=== PATIENT | female | born 1960 | race Caucasian/White ===

== ENCOUNTER 2020-08-01 19:26 | Emergency (ER) | payer BC ==
[~2020-08-01] VITALS: Ht 175.3 cm; Wt 68.2 kg
--- NOTE | 2020-08-01 20:00 | NUR ---
PT STATES SHE HAD 1200 MG IBUPROFEN APPROX 3 HRS AGO, AND 1 NORCO 10 APPROX 2 HRS AGO WITH NO RELIEF. PT IS CURRENTLY ON AUGMENTIN PRESCRIBED BY SALINE Risk I/O.
[2020-08-01] MEDS ORDERED: ketorolac trometh inj. 60 MG/2 ML VIAL IM ONE (20:10)
[2020-08-01 20:28] LABS: RED BLOOD COUNT 3.45 X10'6 (4.20-5.60)
[2020-08-01 20:29] LABS: HEMOGLOBIN 11.1 g/dl (12.0-16.0); MEAN CORPUSCULAR HEMOGLOBIN 32.1 PG (27.0-31.0); MEAN CORPUSCULAR HGB CONC 33.6 g/dL (33.0-36.5); MEAN CORPUSCULAR VOLUME 95.5 FL (78-98); MEAN PLATELET VOLUME 9.2 FL (7.4-10.4); PLATELET COUNT 192 X10'3 (140-440); RED CELL DISTRIBUTION WIDTH 13.7 % (11.5-14.5)
[2020-08-01 20:54] LABS: ANISOCYTOSIS FEW; PLATELET ESTIMATE NORMAL; TOTAL CELLS COUNTED 100
[2020-08-01 20:55] LABS: LARGE PLATELETS MODERATE
[2020-08-01 21:06] LABS: ALANINE AMINOTRANSFERASE 34 U/L (12-78); ALBUMIN 3.7 G/DL (3.4-5.0); ALBUMIN/GLOBULIN RATIO 0.9 (1.1-1.5); ALKALINE PHOSPHATASE 103 IU/L (46-116); ANION GAP 7 (8-16); ASPARTATE AMINO TRANSFERASE 43 U/L (10-37); BILIRUBIN,TOTAL 0.2 MG/DL (0.1-1.0); BLOOD UREA NITROGEN 20 MG/DL (7-18); BUN/CREATININE RATIO 29.9 (6.6-38.0); CALCIUM 8.8 MG/DL (8.5-10.1); CHLORIDE 105 MMOL/L (99-107); CREATININE 0.67 MG/DL (0.40-0.90); GLUCOSE 104 MG/DL (70-104); POTASSIUM 3.8 MMOL/L (3.5-5.1); SODIUM 137 MMOL/L (135-145); TOTAL CARBON DIOXIDE 25.4 MMOL/L (24-32); TOTAL PROTEIN 7.6 G/DL (6.4-8.2); eGFR 90 ML/MIN
[2020-08-01] MEDS ORDERED: clindamycin 600mg/D5W 50ml 50 ML IV ONE ×2 (21:15→21:30)
[2020-08-01 22:16] VITALS: BP 136/84
== END 2020-08-01 22:22 | disposition home or self-care (01) ==
LOC: EDBD 19:28 → ER 19:28
DX: S61.431A Puncture wound without foreign body of right hand, initial encounter (principal); S51.831A Puncture wound without foreign body of right forearm, initial encounter; L03.114 Cellulitis of left upper limb; Z98.890 Other specified postprocedural states; W55.01XA Bitten by cat, initial encounter; Y93.89 Activity, other specified; Y92.89 Other specified places as the place of occurrence of the external cause; Y99.8 Other external cause status
CPT/HCPCS: 36415; 80053; 83605; 84145; 85025; 85651; 86140; 96365; 96372; 99284; J1885; J3490

== ENCOUNTER 2022-07-10 13:19 | Emergency (ER) | payer BC ==
[~2022-07-10] VITALS: Ht 170.2 cm; Wt 69.1 kg
[2022-07-10 13:48] VITALS: BP 157/82
[2022-07-10] MEDS ORDERED: ketorolac trometh inj. 60 MG/2 ML VIAL IM ONE (15:45)
[2022-07-10] MEDS ORDERED: IBUP-1986 PO (17:17)
== END 2022-07-10 17:57 | disposition home or self-care (01) ==
LOC: ER 13:20
DX: S93.401A Sprain of unspecified ligament of right ankle, initial encounter (principal); M25.571 Pain in right ankle and joints of right foot; Z98.890 Other specified postprocedural states; Z79.899 Other long term (current) drug therapy; W22.8XXA Striking against or struck by other objects, initial encounter; Y93.01 Activity, walking, marching and hiking; Y92.89 Other specified places as the place of occurrence of the external cause; Y99.8 Other external cause status
CPT/HCPCS: 73610; 96372; 99283; J1885

== ENCOUNTER 2023-05-14 09:36 | Emergency (ER) | payer BC, OTHER ==
[~2023-05-14] VITALS: Ht 170.2 cm; Wt 66.8 kg
[~2023-05-14 09:36] MED LIST: IBUP-1986 PO
[2023-05-14 09:42] VITALS: BP 166/95
[2023-05-14] MEDS ORDERED: ketorolac trometh inj. 60 MG/2 ML VIAL IM ONE (11:30)
== END 2023-05-14 12:13 | disposition home or self-care (01) ==
LOC: ER 09:36
DX: M25.552 Pain in left hip (principal); G89.29 Other chronic pain; M54.9 Dorsalgia, unspecified; Z87.81 Personal history of (healed) traumatic fracture; Z88.5 Allergy status to narcotic agent; Z88.6 Allergy status to analgesic agent; Z79.899 Other long term (current) drug therapy; X50.0XXA Overexertion from strenuous movement or load, initial encounter; Y93.89 Activity, other specified; Y92.89 Other specified places as the place of occurrence of the external cause; Y99.8 Other external cause status
CPT/HCPCS: 73502; 96372; 99283; J1885

== ENCOUNTER 2024-03-18 15:47 | Emergency (ER) | payer OTHER ==
[~2024-03-18] VITALS: Ht 170.2 cm; Wt 65.0 kg
[2024-03-18 15:58] VITALS: BP 142/93; PULSE 86; TEMP 97.9; O2SAT 96
[2024-03-18 17:31] VITALS: RESP 16
[2024-03-18] MEDS: ketorolac trometh. 30mg/ml inj. IM ONE (17:31)
== END 2024-03-18 17:34 | disposition home or self-care (01) ==
LOC: ER 15:48
DX: G90.521 Complex regional pain syndrome I of right lower limb (principal); Z88.5 Allergy status to narcotic agent
CPT/HCPCS: 96372; 99283; J1885